=== PATIENT | male | born 1955 | race Caucasian/White ===

== ENCOUNTER 2024-03-25 11:39 | Inpatient (IN) ==
[2024-03-25] MEDS ORDERED: KETAMINE HCL ONE (13:29)
[2024-03-25] MEDS ORDERED: NovoLIN R (or HumuLIN R) SUBCUT PRN (13:59)
[2024-03-25] MEDS ORDERED: PERCOCET TAB 5/325 MG PO PRN (14:06)
[2024-03-25 14:46] LABS: BASOPHILS # (AUTO) 0.1 X10^3/uL (0.0-0.1); HEMOGLOBIN 15.9 g/dL (13.5-18.0); MEAN CORPUSCULAR VOLUME 89.8 fL (80.0-100.0); WHITE BLOOD COUNT 8.7 X10^3/uL (3.6-10.0)
[2024-03-25 14:49] LABS: BASOPHILS % (AUTO) 1.1 % (0.2-1.0); EOSINOPHILS # (AUTO) 0.1 x10^3/uL (0.0-0.2); EOSINOPHILS % (AUTO) 1.6 % (0.9-2.9); HEMATOCRIT 46.4 % (42.0-54.0); LYMPHOCYTES # (AUTO) 2.7 X10^3/uL (1.3-2.9); LYMPHOCYTES % (AUTO) 31.2 % (21.0-51.0); MEAN CORPUSCULAR HEMOGLOBIN 30.7 pg (27.0-34.0); MEAN CORPUSCULAR HGB CONC 34.2 g/dL (33.0-35.0); MEAN PLATELET VOLUME 7.6 fL (7.4-11.0); MONOCYTES # (AUTO) 0.5 x10^3/uL (0.3-0.8); MONOCYTES % (AUTO) 5.6 % (0.0-13.0); NEUTROPHILS # (AUTO) 5.2 x10^3/uL (2.2-4.8); NEUTROPHILS % (AUTO) 60.5 % (42.0-75.0); PLATELET COUNT 176 X10^3/uL (150.0-450.0); RED BLOOD COUNT 5.17 X10^6/uL (4.7-6.0); RED CELL DISTRIBUTION WIDTH 15.2 % (11.6-16.5)
[2024-03-25 14:58] LABS: ALANINE AMINOTRANSFERASE 22 Units/L (12-78); ALBUMIN 3.5 g/dL (3.4-5.0); ALKALINE PHOSPHATASE 124 Units/L (46-116); ASPARTATE AMINO TRANSFERASE 14 Units/L (15-37); BLOOD UREA NITROGEN 8 mg/dL (7-18); CALCIUM 9.1 mg/dL (8.5-10.1); CARBON DIOXIDE 29.5 mmol/L (21-32); CHLORIDE 100 mmol/L (98-107); COR NA(FOR HYPERGLY) 138 mmol/L (136-145); GLUCOSE 145 mg/dL (65-99); SODIUM 137 mmol/L (136-145); TOTAL PROTEIN 7.1 g/dL (6.4-8.2); eGFR NON BLACK RACES > 60 (>60)
[2024-03-25 15:01] LABS: POTASSIUM 4.1 mmol/L (3.5-5.1)
[2024-03-25 15:45] VITALS: BMI 29.2
[2024-03-25] MEDS: LOVENOX INJ 100 MG SYR SC SCH (16:51)
[2024-03-25] MEDS: LR 1,000 ML IV 1,000 ML IV SCH (16:51)
--- NOTE | 2024-03-25 18:00 | EKG ---
Test Reason : critical ischemia Blood Pressure : */* mmHG Vent. Rate : 72 BPM Atrial Rate : 72 BPM P-R Int : 122 ms QRS Dur : 88 ms QT Int : 412 ms P-R-T Axes : 20 10 104 degrees QTc Int : 451 ms Normal sinus rhythm Nonspecific T wave abnormality Abnormal ECG No previous ECGs available Confirmed by Chano Ybarra MD ([id number]) on 03/26/2024 7:32:43 AM Referred By: Confirmed By: Chano Ybarra MD
[2024-03-25] MEDS ORDERED: PULMICORT NEB TX 0.5 MG NEB ONE (19:59)
[2024-03-25] MEDS: PULMICORT NEB TX 0.5 MG NEB SCH (20:04)
[2024-03-25] MEDS: SNACK - Diabetic Appropriate PO SCH (22:05)
[2024-03-25] MEDS ORDERED: NOZIN NASAL SANITIZER TP ONE (23:42)
--- NOTE | 2024-03-25 23:44 | DR.H&P ---
H&P History & Physical for Day of: H&P Date: 03/25/24 Chief Complaint Chief Complaint: severe ischemia of both legs History of Present Illness History of Present Illness: 68 yo male, heavy smoker , with history of recent left hemispheric CVA about 6 months ago with persistent weakness of right arm and right leg. Recent doppler done after podiatry exam was consistent with bilateral lower extremity significant ischemia . Follow up CTA shows complately occluded left common iliac artery stent with reconstitution distally and patent left SFA and popliteal arteries and 2 vessel runoff on the left via the posterior and anteriot tibial arteries . The right side shows multiple areas of near occlusion and one area of complete occlusion of the right superficial femoral artery with 2 vessel runoff via the peroneal and posterior tibial arteries . Past Medical History Past Medical History: CVA (left hemispheric with right arm and right leg weakness. ), Diabetes, Dyslipidemia and Hypertension Past Surgical History Surgical History: Other (stenting left iliac artery in the past ) Family History Family Medical History: Diabetes Mellitus, Coronary Artery Disease and Hyperte nsion Social History Does patient currently use any type of tobacco product: Yes Have you used tobacco products in the last 12 months: Yes Type of Tobacco Use: Cigarettes How many years tobacco product used: 55 Packs per day or dips/chews per day: two Alcohol Use: Occasionally Drug Use: None Medications Home Medications: Home Medications Medication Instructions Recorded Confirmed Type aspirin 81 mg tablet 81 mg PO QDAY 03/25/24 03/25/24 History atorvastatin 80 mg tablet 80 mg PO QHS 03/25/24 03/25/24 History ergocalciferol (vitamin D2) 1,250 1,250 mcg PO QWEEK 03/25/24 03/25/24 History mcg (50,000 unit) capsule (Vitamin D2) metformin 500 mg tablet 500 mg PO QDAY 03/25/24 03/25/24 History Allergies Allergies Allergy/AdvReac Type Severity Reaction Status Date / Time No Known Drug Allergies Allergy Unknown Verified 03/25/24 15:45 [NKDA] Labs 03/25/24 14:35 03/25/24 14:35 Labs: Laboratory WBC 8.7 X10^3/uL (3.6-10.0) 03/25/24 14:35 RBC 5.17 X10^6/uL (4.7-6.0) 03/25/24 14:35 Hgb 15.9 g/dL (13.5-18.0) 03/25/24 14:35 Hct 46.4 % (42.0-54.0) 03/25/24 14:35 MCV 89.8 fL (80.0-100.0) 03/25/24 14:35 MCH 30.7 pg (27.0-34.0) 03/25/24 14:35 MCHC 34.2 g/dL (33.0-35.0) 03/25/24 14:35 RDW 15.2 % (11.6-16.5) 03/25/24 14:35 Plt Count 176 X10^3/uL (150.0-450.0) 03/25/24 14:35 MPV 7.6 fL (7.4-11.0) 03/25/24 14:35 Neut % (Auto) 60.5 % (42.0-75.0) 03/25/24 14:35 Lymph % (Auto) 31.2 % (21.0-51.0) 03/25/24 14:35 [place] % (Auto) 5.6 % (0.0-13.0) 03/25/24 14:35 Eos % (Auto) 1.6 % (0.9-2.9) 03/25/24 14:35 Baso % (Auto) 1.1 % (0.2-1.0) H 03/25/24 14:35 Neut # (Auto) 5.2 x10^3/uL (2.2-4.8) H 03/25/24 14:35 Lymph # (Auto) 2.7 X10^3/uL (1.3-2.9) 03/25/24 14:35 [place] # (Auto) 0.5 x10^3/uL (0.3-0.8) 03/25/24 14:35 Eos # (Auto) 0.1 x10^3/uL (0.0-0.2) 03/25/24 14:35 Baso # (Auto) 0.1 X10^3/uL (0.0-0.1) 03/25/24 14:35 Absolute Nucleated RBC 0.1 /100WBC 03/25/24 14:35 Sodium 137 mmol/L (136-145) 03/25/24 14:35 Corrected Sodium 138 mmol/L (136-145) 03/25/24 14:35 Potassium 4.1 mmol/L (3.5-5.1) 03/25/24 14:35 Chloride 100 mmol/L (98-107) 03/25/24 14:35 Carbon Dioxide 29.5 mmol/L (21-32) 03/25/24 14:35 BUN 8 mg/dL (7-18) 03/25/24 14:35 Creatinine 0.70 mg/dL (0.70-1.30) 03/25/24 14:35 Est GFR (MDRD) Af Amer > 60 (>60) 03/25/24 14:35 Est GFR (MDRD) Non-Af > 60 (>60) 03/25/24 14:35 Glucose 145 mg/dL (65-99) H 03/25/24 14:35 POC Glucose (mg/dL) 107 mg/dL (65-99) H 03/25/24 21:02 Calcium 9.1 mg/dL (8.5-10.1) 03/25/24 14:35 Corrected Calcium TNP 03/25/24 14:35 Total Bilirubin 0.20 mg/dL (0.2-1.0) 03/25/24 14:35 AST 14 Units/L (15-37) L 03/25/24 14:35 ALT 22 Units/L (12-78) 03/25/24 14:35 Alkaline Phosphatase 124 Units/L (46-116) H 03/25/24 14:35 Total Protein 7.1 g/dL (6.4-8.2) 03/25/24 14:35 Albumin 3.5 g/dL (3.4-5.0) 03/25/24 14:35 Globulin 3.6 g/dL (2.5-4.5) 03/25/24 14:35 Albumin/Globulin Ratio 1.0 Ratio (1.1-2.1) L 03/25/24 14:35 Review of Systems Constitutional: See HPI Eyes: No Symptoms Reported ENT: No Symptoms Reported Respiratory: See HPI Cardiovascular: No Symptoms Reported Gastrointestinal: No Symptoms Reported Genitourinary: No Symptoms Reported Musculoskeletal: No Symptoms Reported Skin: No Symptoms Reported Neurological: See HPI Physical Exam Vital Signs: Vital Signs Temperature 98.1 F Temperature 98.1 F Pulse Rate [Left Brachial] 71 Pulse Rate [Left Brachial] 71 Pulse Rate 85 Respiratory Rate 19 Respiratory Rate 19 Blood Pressure [Left Arm] 161/77 Blood Pressure [Left Arm] 161/77 O2 Sat by Pulse Oximetry 97 O2 Sat by Pulse Oximetry 97 O2 Sat by Pulse Oximetry 97 Oriented: Normal, Time, Person, Place and Other (Has difficulty with speech due to left hemispheric CVA , making him difficult to understand at times) Eyes: Normal Ear: Normal Nose: Normal Throat: Normal Respiratory: Clear Throughout Cardiovascular: Normal and Other (absent pulse left groin, absent palpable pulses both feet. ) : Normal Auscultation: Bowel Sounds: Normal Palpation: Normal Tenderness: Normal Skin: Normal Musculoskeletal: Normal Psychiatric: Normal Mood Description: Calm Affect: Normal Speech Pattern: Unclear (due to CVA ) Assessment/Plan (1) Atherosclerosis of [place] arteries of extremities with rest pain, right leg: Status: Acute Plan: Admit , plan aortogram and repeat stenting occluded left common iliac artery, begin therapuetic Lovenox. (2) Atherosclerosis of [place] arteries of extremities with rest pain, left leg: Status: Acute Plan: Will address right SFA occlusion this hospital admission (3) Essential (primary) hypertension: Status: Acute Plan: home meds (4) Type 2 diabetes mellitus without complications: Status: Acute Plan: sliding scale insulin (5) Hyperlipemia: Status: Acute Plan: home meds (6) Arterial ischemic stroke, RENEE (anterior cerebral artery), left, chronic: Status: Acute Plan: stable , continue aspirin
[2024-03-26] MEDS: HIBICLENS WASH EXT ONE (04:00)
[2024-03-26] MEDS: NICOTINE PATCH TD SCH (08:15)
[2024-03-26] MEDS: LIPITOR TAB 80 MG PO SCH (08:15)
[2024-03-26] MEDS: ZESTRIL TAB 10 MG PO SCH (08:20)
[2024-03-26] MEDS: NS 1,000 ML IV 1,000 ML ONE (09:31)
[2024-03-26] MEDS: ANCEF VIAL 1 GRAM ONE (09:53)
[2024-03-26] MEDS: NS 100 ML IV 100 ML ONE (09:53)
[2024-03-26] MEDS ORDERED: PRECEDEX INJ VIAL ONE (09:54)
[2024-03-26] MEDS: DIPRIVAN VIAL 20 ML ONE ×3 (09:54→11:11)
[2024-03-26] MEDS ORDERED: BENADRYL INJ 50 MG VIAL ONE (09:54)
[2024-03-26] MEDS: ZOFRAN INJ 4 MG VIAL ONE (09:54)
[2024-03-26] MEDS: OFIRMEV IV 1000 MG VIAL 1,000 MG/100 ML VIAL IV ONE (09:54)
[2024-03-26] MEDS: PEPCID 20 MG VIAL ONE (09:54)
[2024-03-26] MEDS ORDERED: XYLOCAINE 2 % (PLAIN) ONE (09:54)
[2024-03-26] MEDS: VERSED ONE ×2 (09:54→11:08)
[2024-03-26] MEDS ORDERED: KETAMINE HCL ONE (09:54)
[2024-03-26] MEDS: FENTANYL VIAL INJ 100 mcg ONE ×2 (09:54→11:24)
[2024-03-26] MEDS: DECADRON INJ ONE (10:18)
[2024-03-26] MEDS: EPHEDRINE SULFATE INJ ONE (10:18)
[2024-03-26] MEDS: HEPARIN SODIUM IN D5W 75,000 UNITS/1,500 ML BAG ONE (10:23)
[2024-03-26] MEDS: VISIPAQUE 50 ML ONE (10:23)
[2024-03-26] MEDS: MARCAINE 0.5% ONE (10:23)
[2024-03-26] MEDS: VISIPAQUE 100 ML ONE (10:23)
[2024-03-26] MEDS: HEPARIN SODIUM INJ 5000 UNITS ONE (10:28)
[2024-03-26] MEDS: NEO-SYNEPHRINE INJ ONE (11:01)
--- NOTE | 2024-03-26 11:49 | OR.IMMED ---
IMMEDIATE POST-OP NOTE Immediate Post-Op Note Date of surgery/procedure: 03/26/24 Pre-Op Diagnosis: completely occluded left common iliac artery stent Post-Op Diagnosis: same Procedure: aortogram , stenting left common iliac artery Description of Procedure: dictated Surgeon/Phosphoric Acid Operator: Adolph Findings: completely occluded left common iliac artery stent Estimated Blood Loss: < 100 cc Complications: none Progress Notes: to floor, renew diet, continue Lovenox , Plan arterial interven tion of the right SFA occlusion on 03/28/24
[2024-03-27 05:58] LABS: BLOOD UREA NITROGEN 11 mg/dL (7-18); CALCIUM 8.6 mg/dL (8.5-10.1); CARBON DIOXIDE 27.7 mmol/L (21-32); CHLORIDE 102 mmol/L (98-107); COR NA(FOR HYPERGLY) 139 mmol/L (136-145); CREATININE 0.66 mg/dL (0.70-1.30); GLUCOSE 156 mg/dL (65-99); POTASSIUM 3.8 mmol/L (3.5-5.1); SODIUM 138 mmol/L (136-145); eGFR NON BLACK RACES > 60 (>60)
[2024-03-27 06:12] LABS: HEMATOCRIT 40.6 % (42.0-54.0); HEMOGLOBIN 13.6 g/dL (13.5-18.0)
[2024-03-27] MEDS ORDERED: CONSULT PHARMACY - POTASSIUM & MAGNESIUM XX SCH (07:00)
[2024-03-27] MEDS: MAG-OX TAB PO SCH (07:29)
--- NOTE | 2024-03-27 08:51 | RAD ---
EXAMINATION:CHEST, 1 VIEWHISTORY:PRE OP-CRITICAL ISCHEMIA [place] LOWER EXTREMITIES ; CVA, HYPERLIPIDEMIA, DM .COMPARISON STUDY:None.TECHNIQUE:Single portable AP view chestFINDINGS:Lungs are expanded. Patchy alveolar infiltrates scattered within the left lung and right pulmonary base. Mild cardiac silhouette enlargement. Bones are intact.IMPRESSION:Subtle patchy alveolar infiltrates in both lungs.Cardiac silhouette enlargement.THIS IS AN ELECTRONICALLY VERIFIED FINAL REPORT03/27/2024 8:41 AM - Electronically signed by Dorie Bull MD
[2024-03-27] MEDS: K-DUR TAB 20 MEQ PO SCH (08:55)
[2024-03-27 12:21] LABS: HEMATOCRIT 41.1 % (42.0-54.0); HEMOGLOBIN 13.9 g/dL (13.5-18.0)
[2024-03-27 13:22] LABS: BASOPHILS # (AUTO) 0.1 X10^3/uL (0.0-0.1); BASOPHILS % (AUTO) 0.9 % (0.2-1.0); EOSINOPHILS % (AUTO) 0.4 % (0.9-2.9); HEMOGLOBIN 13.7 g/dL (13.5-18.0); LYMPHOCYTES # (AUTO) 3.1 X10^3/uL (1.3-2.9); LYMPHOCYTES % (AUTO) 28.6 % (21.0-51.0); MEAN CORPUSCULAR HEMOGLOBIN 30.5 pg (27.0-34.0); MEAN CORPUSCULAR HGB CONC 34.2 g/dL (33.0-35.0); MEAN CORPUSCULAR VOLUME 89.1 fL (80.0-100.0); MEAN PLATELET VOLUME 7.6 fL (7.4-11.0); MONOCYTES # (AUTO) 0.6 x10^3/uL (0.3-0.8); MONOCYTES % (AUTO) 5.4 % (0.0-13.0); NEUTROPHILS # (AUTO) 6.9 x10^3/uL (2.2-4.8); NEUTROPHILS % (AUTO) 64.7 % (42.0-75.0); PLATELET COUNT 173 X10^3/uL (150.0-450.0); RED BLOOD COUNT 4.48 X10^6/uL (4.7-6.0); RED CELL DISTRIBUTION WIDTH 14.9 % (11.6-16.5); WHITE BLOOD COUNT 10.7 X10^3/uL (3.6-10.0)
[2024-03-27 14:07] LABS: INR 1.01 (0.8-1.3)
--- NOTE | 2024-03-27 22:22 | NOTE.SOAP ---
Soap Note Note for Day of Date of Exam: 03/27/24 Subjective Data Subjective Data: POD #1 after left iliac artery stenting of complete occlusion of the previously placed left common iliac artery stent. Known to have complete occlusion of right superficial femoral artery with ischemia right leg. All pain relieved left leg . Has had some bleeding from each groin needle stick, now stopped on the left, Stable HGb and coagulation profile is normal Objective Data Temperature: 97.8 F Pulse Rate: 68 Respiratory Rate: 16 Blood Pressure: 151/65 O2 Sat by Pulse Oximetry: 96 Objective Data: groins as described above. Hgb=13.7 INR=1.01, PTT=39.1.Fmj=370 k, now with palapble DP pulse on left Assessment Assessment: s/p left iliac artery stening, bleeding form sage needle sticks is resolving Plan Plan: Plan atherectomy and drug coated balloon angioplasty vs stenting of right SFA occlusion.
[2024-03-28] MEDS: HIBICLENS WASH EXT ONE (02:27)
[2024-03-28 07:46] LABS: BASOPHILS # (AUTO) 0.1 X10^3/uL (0.0-0.1); BASOPHILS % (AUTO) 0.7 % (0.2-1.0); EOSINOPHILS # (AUTO) 0.1 x10^3/uL (0.0-0.2); EOSINOPHILS % (AUTO) 1.5 % (0.9-2.9); HEMATOCRIT 38.8 % (42.0-54.0); HEMOGLOBIN 13.1 g/dL (13.5-18.0); LYMPHOCYTES # (AUTO) 3.7 X10^3/uL (1.3-2.9); MEAN CORPUSCULAR HEMOGLOBIN 30.5 pg (27.0-34.0); MEAN CORPUSCULAR HGB CONC 33.9 g/dL (33.0-35.0); MEAN CORPUSCULAR VOLUME 90.1 fL (80.0-100.0); MEAN PLATELET VOLUME 8.4 fL (7.4-11.0); MONOCYTES # (AUTO) 0.7 x10^3/uL (0.3-0.8); MONOCYTES % (AUTO) 7.4 % (0.0-13.0); NEUTROPHILS # (AUTO) 4.9 x10^3/uL (2.2-4.8); NEUTROPHILS % (AUTO) 51.4 % (42.0-75.0); PLATELET COUNT 152 X10^3/uL (150.0-450.0); RED BLOOD COUNT 4.31 X10^6/uL (4.7-6.0); RED CELL DISTRIBUTION WIDTH 15.1 % (11.6-16.5); WHITE BLOOD COUNT 9.5 X10^3/uL (3.6-10.0)
[2024-03-28] MEDS: NS 1,000 ML IV 1,000 ML ONE (15:37)
[2024-03-28] MEDS: ANCEF VIAL 1 GRAM ONE (16:03)
[2024-03-28] MEDS: NS 100 ML IV 100 ML ONE (16:03)
[2024-03-28] MEDS: DIPRIVAN VIAL 20 ML ONE ×2 (16:04→16:57)
[2024-03-28] MEDS: OFIRMEV IV 1000 MG VIAL 1,000 MG/100 ML VIAL IV ONE (16:04)
[2024-03-28] MEDS: FENTANYL VIAL INJ 100 mcg ONE (16:04)
[2024-03-28] MEDS: VERSED ONE (16:04)
[2024-03-28] MEDS: VISIPAQUE 100 ML ONE (16:36)
[2024-03-28] MEDS: MARCAINE 0.5% ONE (16:36)
[2024-03-28] MEDS: HEPARIN SODIUM IN D5W 75,000 UNITS/1,500 ML BAG ONE (16:36)
[2024-03-28] MEDS: VISIPAQUE 50 ML ONE (16:36)
[2024-03-28] MEDS: HEPARIN SODIUM INJ 5000 UNITS ONE (16:44)
[2024-03-28] MEDS: EPHEDRINE SULFATE INJ ONE (16:47)
[2024-03-28] MEDS: NS 500 ML IV 500 ML IV ONE (16:49)
[2024-03-28] MEDS: PROTAMINE SULFATE 50 MG VIAL ONE (16:55)
--- NOTE | 2024-03-28 17:49 | OR.IMMED ---
IMMEDIATE POST-OP NOTE Immediate Post-Op Note Date of surgery/procedure: 03/28/24 Pre-Op Diagnosis: critical ischemia right leg Post-Op Diagnosis: same Procedure: arteriogram right leg, atherectomy and drug coated balloon angioplasty right proximal SFA , popliteal artery and proximal right posterior tibial artery, stenting of mid and distal right superficial femoral artery . Surgeon/Heel Varnisher: Adolph Findings: two vessel runoff via the peroneal and posterior tibial arteries, severe stenosis right proximal posterior tibial artery, severe disease and multiple areas of complete occlusion right superficial femoral artery. Estimated Blood Loss: < 50 cc Complications: none Progress Notes: to floor , home tomorrow.
[2024-03-28] MEDS ORDERED: NovoLIN R (or HumuLIN R) SUBCUT PRN (21:08)
[2024-03-28] MEDS: XARELTO PO SCH (21:23)
[2024-03-28] MEDS: LR 1,000 ML IV 1,000 ML IV SCH (22:04)
[2024-03-28] MEDS: PULMICORT NEB TX 0.5 MG NEB ONE (23:11)
[2024-03-29] MEDS: ASPIRIN EC 81 MG PO SCH (08:58)
[2024-03-29] MEDS ORDERED: XARELTO PO SCH (09:00)
[2024-03-29 12:45] VITALS: TEMP 98; O2SAT 97
[2024-03-29 12:46] VITALS: BP 156/69; PULSE 74; RESP 21
--- NOTE | 2024-03-29 17:04 | W.DIS.FURT ---
Summary of Discharge Discharge Summary of Date Date of Exam: 03/29/24 Admission Date Date of Admission: 03/25/24 Admission Diagnosis Hospital Course: This is a 68 year old male with history of left hemispheric cerebrovascular accident with right arm and right leg weakness who was referred to me after lower extremity arterial doppler showed significant ischemia both legs . Follow- up CT angiogram showed completed oclusion of the left common iliac artery stent and severe disease of the right superficial femoral artery with areas of complete occlusion. He was admitted and placed on therapeutic Lovenox. He was taken to the operating Suite on March 26 where he underwent repeat stenting of the left common iliac artery with reestablishment of palpable distal pulse at the dorsalis pedis location. on March 28 he underwent atherectomy and Drug coated balloon angioplasty of the proximal right superficial femoral artery, atherectomy and drug coated stenting of the distal and mid right superficial femoral artery and popliteal arteries as well as atherectomy and Drug coated balloon angioplasty of the right proximal posterior tibial artery which is the main runoff of the right leg. He has done well. Right foot is without pain is as well as the left. He will be discharged on his usual medications including aspirin and Xarelto 2.5 milligrams PO BID and he will follow up with me in 1 to 2 weeks Vital Signs: Vital Signs (72 hours) 03/27/24 22:18 03/26/24 17:20 03/26/24 19:00 Temperature 97.8 F 98.0 F Pulse Rate 68 Pulse Rate [Left Brachial] 88 Respiratory Rate 16 18 Blood Pressure 151/65 Blood Pressure [Left Arm] 140/70 O2 Sat by Pulse Oximetry 96 100 Oxygen Delivery Method Room Air Room Air 03/26/24 19:57 03/26/24 20:06 03/26/24 23:15 Temperature 97.9 F 97.9 F Pulse Rate 104 H Pulse Rate [Left Brachial] 78 96 H Respiratory Rate 19 18 Blood Pressure Blood Pressure [Left Arm] 151/77 109/69 O2 Sat by Pulse Oximetry 95 95 95 Oxygen Delivery Method Room Air Room Air 03/27/24 04:00 03/27/24 07:53 03/27/24 07:00 Temperature 98.1 F 98.1 F Pulse Rate Pulse Rate [Left Brachial] 69 74 Respiratory Rate 21 20 Blood Pressure Blood Pressure [Left Arm] 123/60 136/67 O2 Sat by Pulse Oximetry 95 96 Oxygen Delivery Method Room Air Room Air Room Air 03/27/24 12:00 03/27/24 16:00 03/27/24 20:19 Temperature 98.3 F 97.8 F Pulse Rate Pulse Rate [Left Brachial] 61 67 Respiratory Rate 20 18 Blood Pressure Blood Pressure [Left Arm] 121/58 125/58 O2 Sat by Pulse Oximetry 96 96 Oxygen Delivery Method Room Air Room Air Room Air 03/27/24 20:19 03/27/24 19:00 03/27/24 20:00 Temperature 97.9 F Pulse Rate 69 Pulse Rate [Left Brachial] 68 Respiratory Rate 18 Blood Pressure Blood Pressure [Left Arm] 151/65 O2 Sat by Pulse Oximetry 96 97 Oxygen Delivery Method Room Air Room Air 03/28/24 00:00 03/28/24 04:00 03/28/24 07:00 Temperature 97.6 F 98.1 F Pulse Rate Pulse Rate [Left Brachial] 62 59 L Respiratory Rate 18 18 Blood Pressure Blood Pressure [Left Arm] 151/68 155/69 O2 Sat by Pulse Oximetry 97 94 L Oxygen Delivery Method Room Air Room Air Room Air 03/28/24 08:00 03/28/24 09:12 03/28/24 12:00 Temperature 97.5 F L 97.8 F Pulse Rate 61 Pulse Rate [Left Brachial] 61 60 Respiratory Rate 18 18 Blood Pressure Blood Pressure [Left Arm] 176/83 185/77 O2 Sat by Pulse Oximetry 92 L 96 96 Oxygen Delivery Method Room Air Room Air 03/28/24 12:10 03/28/24 15:41 03/28/24 17:45 Temperature 98 F 97.9 F Pulse Rate 71 Pulse Rate [Left Brachial] 68 Respiratory Rate 20 16 Blood Pressure 169/94 Blood Pressure [Left Arm] 177/84 127/69 O2 Sat by Pulse Oximetry 96 97 Oxygen Delivery Method Room Air 03/28/24 18:00 03/28/24 18:15 03/28/24 18:30 Temperature 97.9 F 97.5 F L 97.5 F L Pulse Rate Pulse Rate [Left Brachial] 72 70 73 Respiratory Rate 13 15 16 Blood Pressure Blood Pressure [Left Arm] 130/69 147/69 139/65 O2 Sat by Pulse Oximetry 99 98 98 Oxygen Delivery Method 03/28/24 19:16 03/28/24 19:15 03/28/24 19:15 Temperature Pulse Rate 68 Pulse Rate [Left Brachial] Respiratory Rate 14 Blood Pressure 146/72 Blood Pressure [Left Arm] O2 Sat by Pulse Oximetry 94 L Oxygen Delivery Method Room Air Room Air 03/28/24 19:30 03/28/24 19:30 03/28/24 20:15 Temperature Pulse Rate 83 Pulse Rate [Left Brachial] Respiratory Rate 21 Blood Pressure 138/58 136/65 Blood Pressure [Left Arm] O2 Sat by Pulse Oximetry 97 Oxygen Delivery Method Room Air 03/28/24 20:30 03/28/24 20:30 03/28/24 20:00 Temperature 97.7 F Pulse Rate 62 Pulse Rate [Left Brachial] Respiratory Rate 13 Blood Pressure 123/58 Blood Pressure [Left Arm] O2 Sat by Pulse Oximetry 96 Oxygen Delivery Method Room Air 03/28/24 18:45 03/28/24 19:45 03/28/24 20:45 Temperature 97.9 F 97.7 F 97.8 F Pulse Rate Pulse Rate [Left Brachial] 68 65 65 Respiratory Rate 17 13 19 Blood Pressure Blood Pressure [Left Arm] 145/70 113/58 117/72 O2 Sat by Pulse Oximetry 98 95 92 L Oxygen Delivery Method 03/28/24 21:45 03/28/24 22:45 03/28/24 21:00 Temperature 98.0 F 97.7 F Pulse Rate Pulse Rate [Left Brachial] 62 60 Respiratory Rate 18 20 Blood Pressure 172/72 Blood Pressure [Left Arm] 149/67 165/64 O2 Sat by Pulse Oximetry 98 98 Oxygen Delivery Method 03/28/24 21:00 03/28/24 21:15 03/28/24 21:16 Temperature Pulse Rate 62 64 64 Pulse Rate [Left Brachial] Respiratory Rate 18 19 19 Blood Pressure Blood Pressure [Left Arm] O2 Sat by Pulse Oximetry 93 L 97 98 Oxygen Delivery Method Room Air Room Air Room Air 03/28/24 22:00 03/28/24 22:07 03/28/24 22:07 Temperature Pulse Rate 60 64 Pulse Rate [Left Brachial] Respiratory Rate 17 26 H Blood Pressure 165/84 Blood Pressure [Left Arm] O2 Sat by Pulse Oximetry 98 97 Oxygen Delivery Method Room Air Room Air 03/28/24 22:15 03/28/24 22:30 03/28/24 23:00 Temperature Pulse Rate 62 62 Pulse Rate [Left Brachial] Respiratory Rate 16 18 Blood Pressure 186/87 Blood Pressure [Left Arm] O2 Sat by Pulse Oximetry 98 99 Oxygen Delivery Method Room Air Room Air 03/28/24 23:00 03/28/24 19:06 03/28/24 21:25 Temperature 97.9 F 98 F Pulse Rate 60 68 62 Pulse Rate [Left Brachial] Respiratory Rate 18 17 18 Blood Pressure 145/70 149/67 Blood Pressure [Left Arm] O2 Sat by Pulse Oximetry 98 Oxygen Delivery Method Room Air 03/29/24 01:00 03/29/24 00:00 03/29/24 00:01 Temperature 97.7 F 97.7 F Pulse Rate 63 64 Pulse Rate [Left Brachial] Respiratory Rate 16 17 Blood Pressure 169/83 189/153 Blood Pressure [Left Arm] O2 Sat by Pulse Oximetry 96 Oxygen Delivery Method 03/29/24 00:15 03/29/24 00:57 03/29/24 01:00 Temperature Pulse Rate 63 64 Pulse Rate [Left Brachial] Respiratory Rate 20 20 Blood Pressure 163/80 Blood Pressure [Left Arm] O2 Sat by Pulse Oximetry 95 97 Oxygen Delivery Method 03/29/24 01:00 03/29/24 02:00 03/29/24 02:00 Temperature Pulse Rate 62 Pulse Rate [Left Brachial] Respiratory Rate 13 Blood Pressure 169/83 158/81 Blood Pressure [Left Arm] O2 Sat by Pulse Oximetry 95 Oxygen Delivery Method 03/29/24 03:00 03/29/24 03:00 03/29/24 03:12 Temperature Pulse Rate 65 68 Pulse Rate [Left Brachial] Respiratory Rate 18 12 Blood Pressure 186/81 Blood Pressure [Left Arm] O2 Sat by Pulse Oximetry 92 L 96 Oxygen Delivery Method 03/29/24 03:12 03/29/24 04:00 03/29/24 04:00 Temperature Pulse Rate 73 Pulse Rate [Left Brachial] Respiratory Rate 16 Blood Pressure 177/81 158/88 Blood Pressure [Left Arm] O2 Sat by Pulse Oximetry 96 Oxygen Delivery Method Room Air 03/29/24 05:00 03/29/24 05:00 03/29/24 05:38 Temperature 98.1 F Pulse Rate 74 Pulse Rate [Left Brachial] Respiratory Rate 20 Blood Pressure 147/73 Blood Pressure [Left Arm] O2 Sat by Pulse Oximetry 94 L Oxygen Delivery Method Room Air 03/29/24 06:00 03/29/24 06:00 03/29/24 07:00 Temperature Pulse Rate 72 Pulse Rate [Left Brachial] Respiratory Rate 20 Blood Pressure 182/79 Blood Pressure [Left Arm] O2 Sat by Pulse Oximetry 92 L Oxygen Delivery Method Room Air 03/29/24 07:00 03/29/24 08:00 03/29/24 09:00 Temperature 98.0 F Pulse Rate 74 74 83 Pulse Rate [Left Brachial] Respiratory Rate 15 16 15 Blood Pressure 158/81 175/81 163/81 Blood Pressure [Left Arm] O2 Sat by Pulse Oximetry 96 93 L 97 Oxygen Delivery Method Room Air Room Air Room Air 03/29/24 10:00 03/29/24 11:00 Temperature Pulse Rate 78 74 Pulse Rate [Left Brachial] Respiratory Rate 16 21 Blood Pressure 165/72 156/69 Blood Pressure [Left Arm] O2 Sat by Pulse Oximetry 96 97 Oxygen Delivery Method Room Air Room Air Labs: Laboratory Last Values WBC 9.5 X10^3/uL (3.6-10.0) 03/28/24 05:48 RBC 4.31 X10^6/uL (4.7-6.0) L 03/28/24 05:48 Hgb 13.1 g/dL (13.5-18.0) L 03/28/24 05:48 Hct 38.8 % (42.0-54.0) L 03/28/24 05:48 MCV 90.1 fL (80.0-100.0) 03/28/24 05:48 MCH 30.5 pg (27.0-34.0) 03/28/24 05:48 MCHC 33.9 g/dL (33.0-35.0) 03/28/24 05:48 RDW 15.1 % (11.6-16.5) 03/28/24 05:48 Plt Count 152 X10^3/uL (150.0-450.0) 03/28/24 05:48 MPV 8.4 fL (7.4-11.0) 03/28/24 05:48 Neut % (Auto) 51.4 % (42.0-75.0) 03/28/24 05:48 Lymph % (Auto) 39.0 % (21.0-51.0) 03/28/24 05:48 [place] % (Auto) 7.4 % (0.0-13.0) 03/28/24 05:48 Eos % (Auto) 1.5 % (0.9-2.9) 03/28/24 05:48 Baso % (Auto) 0.7 % (0.2-1.0) 03/28/24 05:48 Neut # (Auto) 4.9 x10^3/uL (2.2-4.8) H 03/28/24 05:48 Lymph # (Auto) 3.7 X10^3/uL (1.3-2.9) H 03/28/24 05:48 [place] # (Auto) 0.7 x10^3/uL (0.3-0.8) 03/28/24 05:48 Eos # (Auto) 0.1 x10^3/uL (0.0-0.2) 03/28/24 05:48 Baso # (Auto) 0.1 X10^3/uL (0.0-0.1) 03/28/24 05:48 Absolute Nucleated RBC 0.1 /100WBC 03/28/24 05:48 PT 13.1 SECONDS (11.8-14.3) 03/27/24 13:14 INR Target Range - 03/27/24 13:14 INR 1.01 (0.8-1.3) 03/27/24 13:14 APTT 39.1 SECONDS (22.9-36.5) H 03/27/24 13:14 PTT Comment - 03/27/24 13:14 Sodium 138 mmol/L (136-145) 03/27/24 05:03 Corrected Sodium 139 mmol/L (136-145) 03/27/24 05:03 Potassium 3.8 mmol/L (3.5-5.1) 03/27/24 05:03 Chloride 102 mmol/L (98-107) 03/27/24 05:03 Carbon Dioxide 27.7 mmol/L (21-32) 03/27/24 05:03 BUN 11 mg/dL (7-18) 03/27/24 05:03 Creatinine 0.66 mg/dL (0.70-1.30) L 03/27/24 05:03 Est GFR (MDRD) Af Amer > 60 (>60) 03/27/24 05:03 Est GFR (MDRD) Non-Af > 60 (>60) 03/27/24 05:03 Glucose 156 mg/dL (65-99) H 03/27/24 05:03 POC Glucose (mg/dL) 140 mg/dL (65-99) H 03/29/24 11:04 Calcium 8.6 mg/dL (8.5-10.1) 03/27/24 05:03 Corrected Calcium TNP 03/25/24 14:35 Magnesium 1.6 mg/dL (2.0-2.9) L 03/27/24 05:03 Total Bilirubin 0.20 mg/dL (0.2-1.0) 03/25/24 14:35 AST 14 Units/L (15-37) L 03/25/24 14:35 ALT 22 Units/L (12-78) 03/25/24 14:35 Alkaline Phosphatase 124 Units/L (46-116) H 03/25/24 14:35 Total Protein 7.1 g/dL (6.4-8.2) 03/25/24 14:35 Albumin 3.5 g/dL (3.4-5.0) 03/25/24 14:35 Globulin 3.6 g/dL (2.5-4.5) 03/25/24 14:35 Albumin/Globulin Ratio 1.0 Ratio (1.1-2.1) L 03/25/24 14:35 Reason For Visit: CRITICAL ISCHEMIA BILATERAL LOWER EXTREMITIES Discharge Date Discharge Date: 03/29/24 Discharge Diagnosis All Active Problems (Updated 03/25/24 @ 23:40 by Moustapha Farfan) Arterial ischemic stroke, RENEE (anterior cerebral artery), left, chronic (Acute) Hyperlipemia (Acute) Type 2 diabetes mellitus without complications (Acute) Essential (primary) hypertension (Acute) Atherosclerosis of [place] arteries of extremities with rest pain, left leg (Acute) Atherosclerosis of [place] arteries of extremities with rest pain, right leg (Acute) Plan of Treatment: Continue with present treatment and follow up plan. Pt is to keep follow up appointment as instructed and take medications as ordered. Discharge Medications Discharge Medications: No Known Drug Allergies [NKDA] Allergy (Unknown, Verified 03/25/24 15:45) CONTINUE taking the following medications aspirin 81 mg tablet 81 mg PO QDAY 03/25/24 [History] atorvastatin 80 mg tablet 80 mg PO QHS 03/25/24 [History] ergocalciferol (vitamin D2) 1,250 mcg (50,000 unit) capsule (Vitamin D2) 1,250 mcg PO QWEEK 03/25/24 [History] metformin 500 mg tablet 500 mg PO QDAY 03/25/24 [History] Xarelto 2.5 mg po BID Discharge Disposition Assessment: see hospital course Discharge Plan Discharge Plan Hospital Course: This is a 68 year old male with history of left hemispheric cerebrovascular accident with right arm and right leg weakness who was referred to me after lower extremity arterial doppler showed significant ischemia both legs . Follow- up CT angiogram showed completed oclusion of the left common iliac artery stent and severe disease of the right superficial femoral artery with areas of complete occlusion. He was admitted and placed on therapeutic Lovenox. He was taken to the operating Suite on March 26 where he underwent repeat stenting of the left common iliac artery with reestablishment of palpable distal pulse at the dorsalis pedis location. on March 28 he underwent atherectomy and Drug coated balloon angioplasty of the proximal right superficial femoral artery, atherectomy and drug coated stenting of the distal and mid right superficial femoral artery and popliteal arteries as well as atherectomy and Drug coated balloon angioplasty of the right proximal posterior tibial artery which is the main runoff of the right leg. He has done well. Right foot is without pain is as well as the left. He will be discharged on his usual medications including aspirin and Xarelto 2.5 milligrams PO BID and he will follow up with me in 1 to 2 weeks Patient Disposition: 01 HOME, SELF-CARE Condition: Stable Health Concerns: Post Hospitalization: new medications and changes needed to prevent readmission or further decline. Pt educated and given instructions on all concerns. Care Plan Goals: Problem: Pain/Alteration in Comfort Goal: Improve/ Resolve Pain; Achieve Pain Tolerance Instructions: Take pain medications as prescribed. Contact your primary care provider if your pain is unrelieved or worsens. Follow up with primary care provider as directed. Plan of Treatment: Continue with present treatment and follow up plan. Pt is to keep follow up appointment as instructed and take medications as ordered. Assessment: see hospital course Prescription drug monitoring program results: PDMP reviewed and no concerns identified Prescriptions: New Xarelto 2.5 mg tablet 2.5 mg PO BID Qty: 180 0RF Continued metformin 500 mg tablet 500 mg PO QDAY atorvastatin 80 mg tablet 80 mg PO QHS aspirin 81 mg Tablet 81 mg PO QDAY ergocalciferol (vitamin D2) [Vitamin D2] 1,250 mcg (50,000 unit) Capsule 1,250 mcg PO QWEEK Rx Instructions: Takes every Monday Follow ups/Referrals Follow ups/Referrals: Moustapha Farfan [Primary Care Provider] - 04/08/24 4:15 pm Instructions Instructions: Endovascular Therapy for Peripheral Vascular Disease, Care After Stand Alone Forms: Excuse From Work or School, Post Hospital Follow Up Care
[2024-03-29] MEDS ORDERED: SNACK - Diabetic Appropriate PO SCH (20:00)
[2024-03-29] MEDS ORDERED: LIPITOR TAB 80 MG PO SCH (21:00)
--- NOTE | 2024-04-01 22:01 | DR.OPNOTE ---
OP NOTE Pre-Op Diagnosis: critical ischemai left leg, occluded left common iliac artery stent Post-Op Diagnosis: same Procedure Date Date Of Procedure: 03/26/24 Procedure: PROCEDURE: DIAGNOSTIC AORTOGRAM, DIAGNOSTIC ARTERIOGRAM LEFT LEG, IVUS LEFT ILIAC ARTERY AND AORTA TO RULE OUT SUBINTIMAL DISSECTION NARRATIVE : The patient was taken to the operative suite and placed in the supine position. The left groin and entire right leg were prepped and draped in sterile fashion. The patient was given intravenous sedation supervised by myself. Time out for the procedure obtained. Ultrasound used to identify the left femoral artery and the skin overlying it infiltrated with 0.5% Marcaine. Ultrasound then used to guide puncture of the left femoral artery and a 0.012 inch guide wire was placed. Incision made over the guide wire at the skin edge with a # 11 knife blade and a micro sheath placed over the guide wire into the left femoral artery The small guidewire exchanged for a 0.035 inch Advantage glide wire and the micro sheath exchanged for a 5 Fr vascular sheath. Patient given 5000 units of intravenous heparin. Arteriogram carried out confirmed the completed occlusion of the proximal left, artery stent. Using the 0.035 inch wire and the [place] catheter we were able to get across the occlusion into the aorta with some difficulty but we were concerned about possible sub-intimal dissection of the aorta. Therefore over the wire we place the [place] catheter and exchanged for a 0.018 inch wire and performed intravascular ultrasound showing that we were not in the sub intimal space of the aorta. The 5 Fr sheath in the left groin in exchanged for a 7 Fr vascular sheath , selective catheterization was placment of the wire into the aorta. 0.035 inch wire removed and exchanged for a 0.018 inch wire.Over the wire we placed a 9mmx 57 mm iliac stent and then balloon dilated with a 7mm x 60m mm [place] drug coated balloon. Follow up arteriogram showed the left iliac artery to now be patent . Arterigram of the left leg performed showing no significant stenosis of the arteries of the left leg. All wires and devices removed. The 7 Fr sheath exchanged for an Angioseal device used to close the puncture of the left femor al artery. Dressing applied to the left groin. The patient taken to same day surgery in good condition. Type of Anesthesia: Local (0.5%Marcaine ) Anesthesia Comment: plus MAC Findings: completely occluded leg common iiac artery stent, not in sub-intimal space of the aorta Type of Fluids Used:: Lactated Ringers Total Amount of Fluid Infused:: 800 cc Urine output: 600cc EBL: 100cc Hardware: 9mmx 57 mm iliac stent Complications:: none Needle/Sponge Count:: correct Disposition/Condition: Pt. tolerated procedure without difficulty. Taken to [facility] in stable condition.
--- NOTE | 2024-04-02 23:58 | DR.OPNOTE ---
OP NOTE Pre-Op Diagnosis: Critical ischemia right leg Post-Op Diagnosis: same Procedure Date Date Of Procedure: 03/28/24 Procedure: PROCEDURE: Diagnostic aortogram , diagnostic arteriogram right lower extremity ,atherectomy and drug-coated balloon angioplasty of proximal right posterior tibial artery, atherectomy and drug coated balloon of the proximal right superficial femoral artery and popliteal artery, atherectomy and drug eluting stent placement of the mid and distal right superficial femoral artery. NARRATIVE: The patient was taken to the operative suite and placed in the supine position. The left groin and entire right leg were prepped and draped in sterile fashion. The patient was given intravenous sedation supervised by myself. Time out for the procedure performed . Because of the stent in the left iliac artery I elected to approach this case from the right posterior tibial artery . Ultrasound used to identify the right posterior tibial artery and the skin overlying it infiltrated with 0.5% Marcaine. Ultrasound used to guide puncture of the right posterior tibial artery and a 0.012 inch guide wire placed. Incision made over the guide wire at the skin edge with a # 11 knife blade and a micro sheath placed over the guide wire into the right posterior tibial artery. Arteriogram confirmed that we were in the right posterior tibial artery . The small wire exchanged for a 0.035 inch Advantage glide wire and the micro sheath exchanged for a 7- fr vascular sheath.Patient given 5000 units of IV heparin . From below a guide wire and [place] catheter were used to traverse the obstruction all the way to the proximal right iliac atery. Arteriogram performed showed severe disease of the entire right superficial femoral with 2 areas of complete occlusion as well as a diseased popliteal artery and severe disease of the proximal right posterior tibial artery with occluded right anterior tibial artery and a patent peroneal artery. [place] catheter placed over the 0.035 inch wire and exchanged for a 0.014 inch wire. The Jetstream atherectomy device was placed over the wire and atherectomy performed of the proximal right posterior tibial artery , the popliteal artery and the entire right superficial femoral artery. Arteriogram showed 1 small area of extravasation of the mid right superficial femoral artery. Over the wire we placed a [place] drug coated balloon measuring 4 mm by 100 mm and inflated for 3 minutes in the proximal right poterior tibial artery .This removed and the popliteal artery dilated for 3 minutes with a rRanger 6 millimeter x100 millimeter drug coated balloon. This removed and the proximal right superficial femoral artery dilated for 3 minutes with a [place] drug coated balloon measuring 6 millimetres by 200 millimetres and then removed. Finally a 6 millimetre by 150 millimetre [place] drug eluting stent was placed over the area of extravasation in the mid and distal superficial femoral artery and deployed here. This stent then dilated with a 6 millimetre by 150 millimetre [place] balloon. Arterioram performed of the entire right leg showing excellent results with excellent flow all the way to the foot via the posterior tibial artery.Wires and devices removed from the 7 Fr sheath. The patient had been given an additional dose of 3000 units of heparin 1 hour. No reversal for the heparin was given. Tibial band used to control the puncture site of the posterior tibial artery when the sheath was removed. Patient taken back to the floor in good condition. Type of Anesthesia: Local (0.5% Marcaine ) Anesthesia Comment: plus MAC Findings: two vessel runoff right leg via right peroneal and posterior tibial arteries , severe stenosis proximal righjt posterior tibial artery,severe disaese of right supericial femoral artery and politeal artery with 2 areas of complete occlusion Type of Fluids Used:: Lactated Ringers Total Amount of Fluid Infused:: 500 cc Urine output: 400cc EBL: < 50 cc Hardware: [place] 6mmx 150 mm drug eluting stent Complications:: none Needle/Sponge Count:: correct Disposition/Condition: Pt. tolerated procedure without difficulty. Taken [facility] in stable condition.
== END 2024-03-29 13:10 | disposition home or self-care (01) | DRG 272 ==
LOC: MED/SURG 13:29 → ICU 03-28 15:52
PROVIDERS: ADMIT Surgery; ATTEND Surgery
DX: R94.31 Abnormal electrocardiogram [ECG] [EKG]; Z74.1 Need for assistance with personal care; E78.5 Hyperlipidemia, unspecified; E11.65 Type 2 diabetes mellitus with hyperglycemia; Z65.8 Other specified problems related to psychosocial circumstances; Z86.73 Personal history of transient ischemic attack (TIA), and cerebral infarction without residual deficits; I10 Essential (primary) hypertension; E83.42 Hypomagnesemia; Z72.0 Tobacco use; I70.223 Atherosclerosis of native arteries of extremities with rest pain, bilateral legs; R26.89 Other abnormalities of gait and mobility; I25.10 Atherosclerotic heart disease of native coronary artery without angina pectoris